=== PATIENT | male | born 1980 | race American Indian/Alaskan Native ===

== ENCOUNTER 2021-12-24 09:00 | Inpatient (IN) | payer OTHER ==
[2021-12-24 12:59] LABS: Hematocrit 35.7 % (35.5-45.6); Hemoglobin 11.9 gm/dl (11.8-15.2); Mean Corpuscular HGB Conc 33 % (32-34); Mean Corpuscular Volume 83 fl (84-94); Platelet Count 238 K/mm3 (140-440); Red Blood Count 4.33 M/mm3 (3.65-5.03); Red Cell Distribution Width 13.3 % (13.2-15.2)
[2021-12-24 13:20] LABS: Calcium 8.6 mg/dL (8.4-10.2)
--- NOTE | 2021-12-24 14:07 | XRay Report ---
XR chest routine 2V INDICATION / CLINICAL INFORMATION: Upper Respiratory Infection. COMPARISON: None available. FINDINGS: SUPPORT DEVICES: None. HEART /PULMONARY VASCULATURE: No significant abnormality. LUNGS / PLEURA: There is focal asymmetric airspace opacity left perihilar region and medial left lung base. Right lung is clear. No sizable pleural effusion. No pneumothorax. ADDITIONAL FINDINGS: No significant additional findings. IMPRESSION: Left perihilar and basilar airspace opacity, most consistent with pneumonia. Recommend continued radi ographic follow-up to resolution. Signer Name: Farrukh Schuster MD Signed: 12/24/2021 2:02 PM Workstation Name: [id number]
[2021-12-24 14:27] LABS: Band Neutrophils # (Manual) 1.2 K/mm3; Basophils % (Manual) 0 % (0.0-1.8); Eosinophils % (Manual) 0 % (0.0-4.3); Total Cells Counted 100
[2021-12-24 14:29] LABS: Anisocytosis 1+
[2021-12-24 14:30] LABS: Spherocytes 1+
[2021-12-24 14:31] LABS: Platelet Estimate Consistent w Auto
--- NOTE | 2021-12-24 16:17 | Cat Scan Report ---
CTA CHEST WITH CONTRAST INDICATION / CLINICAL INFORMATION: elevated ddimer, r/o pe 100ml of [id number] . TECHNIQUE: Axial CT images were obtained through the chest after injection of 100 cc of Omnipaque 350 IV contrast. 3 plane MIP and/or 3D reconstructions were produced. All CT scans at this location are performed using CT dose reduction for ALARA by means of automated exposure control. COMPARISON: None available. FINDINGS: PULMONARY ARTERIES: No pulmonary emboli. THORACIC AORTA: No significant abnormality. HEART: No significant abnormality. CORONARY ARTERY CALCIFICATION: None. MEDIASTINUM / JUAN: There are mildly prominent left paratracheal and left hilar lymph nodes. These ar e nonspecific. PLEURA: No pleural effusion. No pneumothorax. LUNGS: There is airspace consolidation in the medial aspect of the left lower lobe and there are patc hy airspace opacities in the right lower lobe and right upper lobe. ADDITIONAL FINDINGS: None. UPPER ABDOMEN: No acute findings. SKELETAL STRUCTURES: No significant osseous abnormality. IMPRESSION: 1. No CT evidence for pulmonary embolism. 2. Bilateral pulmonary opacities most prominent in the medial left lower lobe characteristic of pneum onia. 3. Mildly prominent mediastinal and left hilar nodes are likely reactive. Signer Name: Alfonzo Bueno MD Signed: 12/24/2021 4:13 PM Workstation Name: [email or web address]
[2021-12-24] MEDS ORDERED: SODIUM CHLORIDE 0.9% 1000 ML 1,000 ML IV ONE (16:39)
[2021-12-24] MEDS ORDERED: PROCHLORPERAZINE EDISYLATE 10 MG/2 ML VIAL IV ONE (17:00)
--- NOTE | 2021-12-24 17:33 | Emergency Department Report ---
- General Chief Complaint: Upper Respiratory Infection Stated Complaint: PNEUMONIA Time Seen by Provider: 12/24/21 16:36 Source: patient Mode of arrival: Ambulatory Limitations: No Limitations - History of Present Illness Initial Comments: Patient is a 41-year-old male sent from urgent care for evaluation of cough with generalized body aches, nausea and vomiting for the past week. He also reports shortness of breath. - Related Data Allergies Allergy/AdvReac Type Severity Reaction Status Date / Time No Known Allergies Allergy Verified 12/24/21 09:44 ED Review of Systems ROS: Stated complaint: PNEUMONIA Other details as noted in HPI Constitutional: chills, malaise Respiratory: shortness of breath Cardiovascular: denies: chest pain, palpitations Gastrointestinal: nausea, vomiting. denies: as per HPI, abdominal pain Genitourinary: denies: urgency, dysuria Musculoskeletal: myalgia Skin: denies: rash, lesions Neurological: denies: headache, weakness, paresthesias Psychiatric: denies: anxiety, depression ED Physical Exam - General Limitations: No Limitations General appearance: alert, in no apparent distress - Head Head exam: Present: atraumatic, normocephalic - Neck Neck exam: Present: normal inspection. Absent: tenderness - Respiratory Respiratory exam: Present: normal lung sounds bilaterally. Absent: respiratory distress - Cardiovascular Cardiovascular Exam: Present: normal rhythm, tachycardia, normal heart sounds - GI/Abdominal GI/Abdominal exam: Present: soft. Absent: distended, tenderness - Rectal Rectal exam: Present: deferred - Neurological Exam Neurological exam: Present: alert, oriented X3 - Psychiatric Psychiatric exam: Present: normal affect, normal mood - Skin Skin exam: Present: warm, dry, intact, normal color ED Course Vital Signs 12/24/21 09:41 Temperature 99.3 F Pulse Rate 126 H Respiratory 18 Rate Blood Pressure 121/99 [Right] O2 Sat by Pulse 96 Oximetry ED Medical Decision Making - Lab Data Result diagrams: 12/24/21 12:35 12/24/21 12:35 - Medical Decision Making WBC count 17,000. Chest x-ray and CTA chest show bilateral infiltrates consistent with pneumonia. Patient given IV Levaquin along with IV fluids. Will admit to [facility]. Critical care attestation.: If time is entered above; I have spent that time in minutes in the direct care of this critically ill patient, excluding procedure time. ED Disposition Clinical Impression: Community acquired pneumonia Disposition: 09 ADMITTED INPATIENT Is pt being admited?: Yes Does the pt Need Aspirin: No Condition: Stable Instructions: Bacterial Pneumonia (ED)
[2021-12-24] MEDS ORDERED: MORPHINE 2 MG/1 ML INJ IM ONE (17:49)
[2021-12-24] MEDS ORDERED: ONDANSETRON 4 MG/2 ML INJ IV PRN (21:32)
[2021-12-24] MEDS ORDERED: MORPHINE 2 MG/1 ML INJ IV PRN (21:32)
[2021-12-24] MEDS ORDERED: ACETAMINOPHEN 325 MG TAB PO PRN (21:32)
[2021-12-24] MEDS ORDERED: IPRATROPIUM/ALBUTEROL SULFATE 3 ML AMPUL.NEB IH PRN (21:34)
[2021-12-24] MEDS ORDERED: SODIUM CHLORIDE 0.9% 1000 ML 1,000 ML IV SCH (21:45)
[2021-12-25] MEDS: HEPARIN 5,000 UNIT/1 ML VIAL SUB-Q SCH ×3 (01:00→21:48)
[2021-12-25] MEDS: FAMOTIDINE 20 MG TAB PO SCH ×2 (01:00→10:05)
[2021-12-25 03:06] LABS: Hematocrit 31.1 % (35.5-45.6); Hemoglobin 10.4 gm/dl (11.8-15.2); Mean Corpuscular HGB Conc 33 % (32-34); Mean Corpuscular Volume 83 fl (84-94); Platelet Count 209 K/mm3 (140-440); Red Blood Count 3.77 M/mm3 (3.65-5.03); Red Cell Distribution Width 13.1 % (13.2-15.2)
[2021-12-25 03:29] LABS: Alanine Aminotransferase 22 units/L (7-56); BUN/Creatinine Ratio 24; Blood Urea Nitrogen 33 mg/dL (9-20); Calcium 7.8 mg/dL (8.4-10.2); Hemolysis Index 2
[2021-12-25 03:56] LABS: Basophils % (Manual) 0 % (0.0-1.8); Eosinophils % (Manual) 0 % (0.0-4.3); Total Cells Counted 100
[2021-12-25 03:57] LABS: Platelet Estimate Consistent w Auto
[2021-12-25] MEDS: cefTRIAXone/NS 2 GM/100 ML 2 GM/100 ML BAG IV SCH ×2 (04:29→09:59)
[2021-12-25] MEDS ORDERED: hydrALAZINE 20 MG/1 ML INJ IV PRN (05:18)
[2021-12-25] MEDS: AZITHROMYCIN/NS 500 MG/250 ML 500 MG/250 ML BAG IV SCH ×2 (05:48→21:48)
--- NOTE | 2021-12-25 06:34 | History and Physical Report ---
History of Present Illness Date of examination: 12/24/21 Date of admission: 12/24/21 21:32 Chief complaint: Fever cough and chills for 3 days History of present illness: 41-year-old male with no significant past medical history sent from urgent care for evaluation of cough associated with generalized body aches and nausea and vomiting for the past 1 week more so for the last 3 days. Also some shortness of breath. Cough productive of mucoid sputum. COVID vaccination status was not asked in the emergency room. No orthopnea and dyspnea on exertion. Past History Past Medical History: No medical history Past Surgical History: No surgical history Social history: lives with family, full code. denies: smoking, alcohol abuse Family history: hypertension Medications and Allergies Allergies Allergy/AdvReac Type Severity Reaction Status Date / Time No Known Allergies Allergy Verified 12/24/21 09:44 Active Meds: Active Medications Acetaminophen (Acetaminophen 325 Mg Tab) 650 mg PO Q4H PRN PRN Reason: Pain MILD(1-3)/Fever >100.5/DURANT Famotidine (Famotidine 20 Mg Tab) 20 mg PO QAM WILLIE Last Admin: 12/25/21 01:00 Dose: 20 mg Heparin Sodium (Porcine) (Heparin 5,000 Unit/1 Ml Vial) 5,000 unit SUB-Q Q12HR WILLIE Last Admin: 12/25/21 01:00 Dose: 5,000 unit Hydralazine HCl (Hydralazine 20 Mg/1 Ml Inj) 10 mg IV Q6H PRN PRN Reason: Hypertension Last Admin: 12/25/21 05:51 Dose: 10 mg Sodium Chloride (Nacl 0.9% 1000 Ml) 1,000 mls @ 75 mls/hr IV DIRECT WILLIE Last Admin: 12/25/21 01:00 Dose: 75 mls/hr Azithromycin (Zithromax/Ns) 500 mg in 250 mls @ 250 mls/hr IV Q24H [facility] Last Admin: 12/25/21 05:48 Dose: 250 mls/hr Ceftriaxone Sodium (Rocephin/Ns 2 Gm/100 Ml) 2 gm in 100 mls @ 200 mls/hr IV Q24HR [facility]; Protocol Last Admin: 12/25/21 04:29 Dose: 200 mls/hr Morphine Sulfate (Morphine 2 Mg/1 Ml Inj) 2 mg IV Q4H PRN PRN Reason: Pain, Moderate (4-6) Last Admin: 12/25/21 00:11 Dose: 2 mg Ondansetron HCl (Ondansetron 4 Mg/2 Ml Inj) 4 mg IV Q8H PRN PRN Reason: Nausea And Vomiting Oxycodone/Acetaminophen (Oxycodone /Acetaminophen 5-325mg Tab) 1 tab PO Q6H PRN PRN Reason: Pain, Moderate (4-6) Sodium Chloride (Sodium Chloride 0.9% 10 Ml Flush Syringe) 10 ml IV BID WILLIE Last Admin: 12/25/21 01:00 Dose: 10 ml Sodium Chloride (Sodium Chloride 0.9% 10 Ml Flush Syringe) 10 ml IV PRN PRN PRN Reason: LINE FLUSH Review of Systems All systems: negative Respiratory: cough with sputum, shortness of breath Musculoskeletal: myalgias Exam - Constitutional Vitals: Temp Pulse Resp BP Pulse Ox 98.4 F 107 H 18 161/112 97 12/25/21 04:33 12/25/21 05:51 12/25/21 04:33 12/25/21 05:51 12/25/21 04:33 General appearance: Present: no acute distress, well-nourished - EENT Eyes: Present: PERRL ENT: hearing intact, clear oral mucosa - Neck Neck: Present: supple, normal ROM - Respiratory Respiratory effort: normal Respiratory: bilateral: CTA, rhonchi, wheezing - Cardiovascular Heart rate: 88 Rhythm: regular Heart Sounds: Present: S1 & S2. Absent: rub, click - Extremities Extremities: no ischemia, pulses intact, pulses symmetrical, No edema Peripheral Pulses: within normal limits - Abdominal General gastrointestinal: Present: soft, non-tender, non-distended, normal bowel sounds Male genitourinary: Present: normal - Integumentary Integumentary: Present: clear, warm, dry - Musculoskeletal Musculoskeletal: gait normal, strength equal bilaterally - Psychiatric Psychiatric: appropriate mood/affect, intact judgment & insight - Neurologic Neurologic: CNII-XII intact, moves all extremities - Allied Health Allied health notes reviewed: nursing, case management Results - Labs CBC & Chem 7: 12/25/21 02:28 12/25/21 02:28 Labs: Laboratory Last Values WBC 15.9 K/mm3 (4.5-11.0) H 12/25/21 02:28 RBC 3.77 M/mm3 (3.65-5.03) 12/25/21 02:28 Hgb 10.4 gm/dl (11.8-15.2) L 12/25/21 02:28 Hct 31.1 % (35.5-45.6) L 12/25/21 02:28 MCV 83 fl (84-94) L 12/25/21 02:28 MCH 28 pg (28-32) 12/25/21 02:28 MCHC 33 % (32-34) 12/25/21 02:28 RDW 13.1 % (13.2-15.2) L 12/25/21 02:28 Plt Count 209 K/mm3 (140-440) 12/25/21 02:28 Add Manual Diff Complete 12/25/21 02:28 Total Counted 100 12/25/21 02:28 Seg Neuts % (Manual) 81.0 % (40.0-70.0) H 12/25/21 02:28 Band Neutrophils % 0 % 12/25/21 02:28 Lymphocytes % (Manual) 14.0 % (13.4-35.0) 12/25/21 02:28 Reactive Lymphs % (Man) 0 % 12/25/21 02:28 Monocytes % (Manual) 5.0 % (0.0-7.3) 12/25/21 02:28 Eosinophils % (Manual) 0 % (0.0-4.3) 12/25/21 02:28 Basophils % (Manual) 0 % (0.0-1.8) 12/25/21 02:28 Metamyelocytes % 0 % 12/25/21 02:28 Myelocytes % 0 % 12/25/21 02:28 Promyelocytes % 0 % 12/25/21 02:28 Blast Cells % 0 % 12/25/21 02:28 Nucleated RBC % Not Reportable 12/25/21 02:28 Seg Neutrophils # Man 12.9 K/mm3 (1.8-7.7) H 12/25/21 02:28 Band Neutrophils # 0.0 K/mm3 12/25/21 02:28 Lymphocytes # (Manual) 2.2 K/mm3 (1.2-5.4) 12/25/21 02:28 Abs React Lymphs (Man) 0.0 K/mm3 12/25/21 02:28 Monocytes # (Manual) 0.8 K/mm3 (0.0-0.8) 12/25/21 02:28 Eosinophils # (Manual) 0.0 K/mm3 (0.0-0.4) 12/25/21 02:28 Basophils # (Manual) 0.0 K/mm3 (0.0-0.1) 12/25/21 02:28 Metamyelocytes # 0.0 K/mm3 12/25/21 02:28 Myelocytes # 0.0 K/mm3 12/25/21 02:28 Promyelocytes # 0.0 K/mm3 12/25/21 02:28 Blast Cells # 0.0 K/mm3 12/25/21 02:28 WBC Morphology Not Reportable 12/25/21 02:28 Hypersegmented Neuts Not Reportable 12/25/21 02:28 Hyposegmented Neuts Not Reportable 12/25/21 02:28 Hypogranular Neuts Not Reportable 12/25/21 02:28 Smudge Cells Not Reportable 12/25/21 02:28 Toxic Granulation Not Reportable 12/25/21 02:28 Toxic Vacuolation Not Reportable 12/25/21 02:28 Dohle Bodies Not Reportable 12/25/21 02:28 Pelger-Huet Anomaly Not Reportable 12/25/21 02:28 Anna Rods Not Reportable 12/25/21 02:28 Platelet Estimate Consistent w auto 12/25/21 02:28 Clumped Platelets Not Reportable 12/25/21 02:28 Plt Clumps, EDTA Not Reportable 12/25/21 02:28 Large Platelets Not Reportable 12/25/21 02:28 Giant Platelets Not Reportable 12/25/21 02:28 Platelet Satelliting Not Reportable 12/25/21 02:28 Plt Morphology Comment Not Reportable 12/25/21 02:28 RBC Morphology Not Reportable 12/25/21 02:28 Dimorphic RBCs Not Reportable 12/25/21 02:28 Polychromasia Not Reportable 12/25/21 02:28 Hypochromasia Not Reportable 12/25/21 02:28 Poikilocytosis Not Reportable 12/25/21 02:28 Anisocytosis Not Reportable 12/25/21 02:28 Microcytosis Not Reportable 12/25/21 02:28 Macrocytosis Not Reportable 12/25/21 02:28 Spherocytes Not Reportable 12/25/21 02:28 Pappenheimer Bodies Not Reportable 12/25/21 02:28 Sickle Cells Not Reportable 12/25/21 02:28 Target Cells Not Reportable 12/25/21 02:28 Tear Drop Cells Not Reportable 12/25/21 02:28 Ovalocytes Not Reportable 12/25/21 02:28 Helmet Cells Not Reportable 12/25/21 02:28 [place] Bodies Not Reportable 12/25/21 02:28 [place] Rings Not Reportable 12/25/21 02:28 Outing Cells Not Reportable 12/25/21 02:28 Bite Cells Not Reportable 12/25/21 02:28 Crenated Cell Not Reportable 12/25/21 02:28 Elliptocytes Not Reportable 12/25/21 02:28 Acanthocytes (Spur) Not Reportable 12/25/21 02:28 Rouleaux Not Reportable 12/25/21 02:28 Hemoglobin C Crystals Not Reportable 12/25/21 02:28 Schistocytes Not Reportable 12/25/21 02:28 Malaria parasites Not Reportable 12/25/21 02:28 Teja Bodies Not Reportable 12/25/21 02:28 Hem Pathologist Commnt No 12/25/21 02:28 D-Dimer 855.97 ng/mlDDU (0-234) H 12/24/21 12:35 Sodium 128 mmol/L (137-145) L 12/25/21 02:28 Potassium 4.0 mmol/L (3.6-5.0) 12/25/21 02:28 Chloride 95.5 mmol/L (98-107) L 12/25/21 02:28 Carbon Dioxide 24 mmol/L (22-30) 12/25/21 02:28 Anion Gap 13 mmol/L 12/25/21 02:28 BUN 33 mg/dL (9-20) H 12/25/21 02:28 Creatinine 1.4 mg/dL (0.8-1.3) H 12/25/21 02:28 Estimated GFR > 60 ml/min 12/25/21 02:28 BUN/Creatinine Ratio 24 % 12/25/21 02:28 Glucose 106 mg/dL (75-100) H 12/25/21 02:28 Calcium 7.8 mg/dL (8.4-10.2) L 12/25/21 02:28 Total Bilirubin 0.50 mg/dL (0.1-1.2) 12/25/21 02:28 AST 46 units/L (5-40) H 12/25/21 02:28 ALT 22 units/L (7-56) 12/25/21 02:28 Alkaline Phosphatase 80 units/L (35-129) 12/25/21 02:28 Total Protein 7.4 g/dL (6.3-8.2) 12/25/21 02:28 Albumin 3.0 g/dL (3.9-5) L 12/25/21 02:28 Albumin/Globulin Ratio 0.7 % 12/25/21 02:28 Microbiology: Microbiology 12/25/21 02:36 Peripheral/Venous Blood Culture - Preliminary Culture in Progress 12/25/21 02:28 Peripheral/Venous Blood Culture - Preliminary Culture in Progress - Imaging and Cardiology Imaging and Cardiology: Chest x-ray Left perihilar and basilar airspace opacity most consistent with pneumonia CT angiogram of the chest Neck no evidence for pulmonary embolism. Bilateral pulmonary opacities most prominent in the medial left lower lobe characteristic pneumonia. Mildly prominent mediastinal and left hilar nodes likely reactive. Assessment and Plan Advance Directives: Yes (Full code) VTE prophylaxis?: Chemical Plan of care discussed with patient/family: Yes - Patient Problems (1) SIRS (systemic inflammatory response syndrome) Current Visit: Yes Status: Acute Plan to address problem: Patient is a high white count and elevated D-dimers Consistent with systemic inflammatory response syndrome Patient initiated on IV Zithromax and IV Rocephin PUI for COVID (2) Acute respiratory failure with hypoxia Current Visit: Yes Status: Acute Plan to address problem: Patient was initially hypoxic initially and improved with nasal cannula oxygen (3) Bilateral pneumonia Current Visit: Yes Status: Acute Plan to address problem: Consistent with community-acquired pneumonia Rule out COVID pneumonia IV Zithromax and IV Rocephin for now. Reevaluated. (4) Hyponatremia Current Visit: Yes Status: Acute Plan to address problem: IV normal saline for now (5) NATALY (acute kidney injury) Current Visit: Yes Status: Acute Plan to address problem: Vasomotor nephropathy IV fluids for now Creatinine was 1.6 Recheck BMP (6) DVT prophylaxis Current Visit: Yes Status: Acute Plan to address problem: On heparin and GI prophylaxis (7) Advance care planning Current Visit: Yes Status: Acute Plan to address problem: Disease education conducted, care plan discussed, diagnosis and prognosis discussed. Patient is full code. Patient acknowledged understanding of care plan. +30 minutes.
--- NOTE | 2021-12-25 06:46 | Event Note ---
Date: 12/24/21 Patient blood pressure has been higher Patient initiated on valsartan 160 mg once a day
[2021-12-25] MEDS: NIFEdipine XL 60 MG TAB PO SCH (10:05)
[2021-12-25] MEDS: VALSARTAN 160MG TAB PO SCH (10:05)
[2021-12-25] MEDS: oxyCODONE /ACETAMINOPHEN 5-325MG TAB PO PRN (11:58)
--- NOTE | 2021-12-25 14:15 | Progress Note ---
Assessment and Plan Assessment and plan: #Bilateral pneumonia secondary to possible gram-negative bacteria versus atypical bacteria #Acute hypoxic respiratory failureresolved #SIRS WBC 17.6--> 15.9 Chest x-ray revealing consolidation of left lower lobe. Unremarkable coronavirus PCR. Pending influenza A/B PCR. Continue azithromycin 500 mg every 24 hours and Rocephin 1 g every 24 hours. Patient denies possible aspiration and denies alcohol history. #NATALY secondary to vasomotor nephropathyimproving Creatinine 1.6--> 1.4 Secondary to decreased p.o. intake (tea and toast diet) in the setting of nausea and vomiting Renally dose meds and avoid nephrotoxic drugs. Monitor with BMP tomorrow morning. #Hyponatremiaimproving Sodium 127--> 128 Secondary to decreased p.o. intake (tea and toast diet) in the setting of nausea and vomiting Continue to encourage patient to increase p.o. intake + continue normal saline infusion at 75 cc an hour Monitor with BMP tomorrow morning #Microcytic anemia Hemoglobin 10.4 Patient denies hemoptysis, hematemesis, melena, hematuria, or genetic hemoglobinopathies. Pending iron profile + ferritin. Given patient's age and race, patient should follow with gastroenterology in the outpatient setting to likely undergo colonoscopy to evaluate for possible malignancy. Patient expresses understanding. [facility] #Mild protein caloric malnutrition Albumin 3.0 Starting dietary supplementation #Advanced care planning -Disease education conducted, care plan discussed, diagnoses discussed, prognosis discussed, and patient acknowledges understanding with care plan -Time: +30 min Disposition Plan: Continue medical management Total Time Spent with Patient (Minutes): 45 minutes History Interval history: No acute events overnight. Hospitalist Physical - Constitutional Vitals: Temp Pulse Resp BP Pulse Ox 98.6 F 103 H 20 137/100 98 12/25/21 11:28 12/25/21 11:28 12/25/21 11:28 12/25/21 11:28 12/25/21 11:28 General appearance: Present: no acute distress, well-nourished - EENT Eyes: Present: PERRL, EOM intact ENT: hearing intact, clear oral mucosa, dentition normal - Neck Neck: Present: supple, normal ROM - Respiratory Respiratory effort: normal Respiratory: bilateral: CTA - Cardiovascular Rhythm: regular Heart Sounds: Present: S1 & S2 - Extremities Extremities: no ischemia, pulses intact, pulses symmetrical, No edema, normal temperature, normal color, Full ROM Peripheral Pulses: within normal limits - Abdominal General gastrointestinal: soft, non-tender, non-distended, normal bowel sounds - Integumentary Integumentary: Present: clear, warm, dry - Psychiatric Psychiatric: appropriate mood/affect, intact judgment & insight, memory intact, cooperative - Neurologic Neurologic: CNII-XII intact, moves all extremities - Allied Health Allied health notes reviewed: nursing Results - Labs CBC & Chem 7: 12/25/21 02:28 12/25/21 02:28 Labs: Laboratory Last Values WBC 15.9 K/mm3 (4.5-11.0) H 12/25/21 02:28 RBC 3.77 M/mm3 (3.65-5.03) 12/25/21 02:28 Hgb 10.4 gm/dl (11.8-15.2) L 12/25/21 02:28 Hct 31.1 % (35.5-45.6) L 12/25/21 02:28 MCV 83 fl (84-94) L 12/25/21 02:28 MCH 28 pg (28-32) 12/25/21 02:28 MCHC 33 % (32-34) 12/25/21 02:28 RDW 13.1 % (13.2-15.2) L 12/25/21 02:28 Plt Count 209 K/mm3 (140-440) 12/25/21 02:28 Add Manual Diff Complete 12/25/21 02:28 Total Counted 100 12/25/21 02:28 Seg Neuts % (Manual) 81.0 % (40.0-70.0) H 12/25/21 02:28 Band Neutrophils % 0 % 12/25/21 02:28 Lymphocytes % (Manual) 14.0 % (13.4-35.0) 12/25/21 02:28 Reactive Lymphs % (Man) 0 % 12/25/21 02:28 Monocytes % (Manual) 5.0 % (0.0-7.3) 12/25/21 02:28 Eosinophils % (Manual) 0 % (0.0-4.3) 12/25/21 02:28 Basophils % (Manual) 0 % (0.0-1.8) 12/25/21 02:28 Metamyelocytes % 0 % 12/25/21 02:28 Myelocytes % 0 % 12/25/21 02:28 Promyelocytes % 0 % 12/25/21 02:28 Blast Cells % 0 % 12/25/21 02:28 Nucleated RBC % Not Reportable 12/25/21 02:28 Seg Neutrophils # Man 12.9 K/mm3 (1.8-7.7) H 12/25/21 02:28 Band Neutrophils # 0.0 K/mm3 12/25/21 02:28 Lymphocytes # (Manual) 2.2 K/mm3 (1.2-5.4) 12/25/21 02:28 Abs React Lymphs (Man) 0.0 K/mm3 12/25/21 02:28 Monocytes # (Manual) 0.8 K/mm3 (0.0-0.8) 12/25/21 02:28 Eosinophils # (Manual) 0.0 K/mm3 (0.0-0.4) 12/25/21 02:28 Basophils # (Manual) 0.0 K/mm3 (0.0-0.1) 12/25/21 02:28 Metamyelocytes # 0.0 K/mm3 12/25/21 02:28 Myelocytes # 0.0 K/mm3 12/25/21 02:28 Promyelocytes # 0.0 K/mm3 12/25/21 02:28 Blast Cells # 0.0 K/mm3 12/25/21 02:28 WBC Morphology Not Reportable 12/25/21 02:28 Hypersegmented Neuts Not Reportable 12/25/21 02:28 Hyposegmented Neuts Not Reportable 12/25/21 02:28 Hypogranular Neuts Not Reportable 12/25/21 02:28 Smudge Cells Not Reportable 12/25/21 02:28 Toxic Granulation Not Reportable 12/25/21 02:28 Toxic Vacuolation Not Reportable 12/25/21 02:28 Dohle Bodies Not Reportable 12/25/21 02:28 Pelger-Huet Anomaly Not Reportable 12/25/21 02:28 Anna Rods Not Reportable 12/25/21 02:28 Platelet Estimate Consistent w auto 12/25/21 02:28 Clumped Platelets Not Reportable 12/25/21 02:28 Plt Clumps, EDTA Not Reportable 12/25/21 02:28 Large Platelets Not Reportable 12/25/21 02:28 Giant Platelets Not Reportable 12/25/21 02:28 Platelet Satelliting Not Reportable 12/25/21 02:28 Plt Morphology Comment Not Reportable 12/25/21 02:28 RBC Morphology Not Reportable 12/25/21 02:28 Dimorphic RBCs Not Reportable 12/25/21 02:28 Polychromasia Not Reportable 12/25/21 02:28 Hypochromasia Not Reportable 12/25/21 02:28 Poikilocytosis Not Reportable 12/25/21 02:28 Anisocytosis Not Reportable 12/25/21 02:28 Microcytosis Not Reportable 12/25/21 02:28 Macrocytosis Not Reportable 12/25/21 02:28 Spherocytes Not Reportable 12/25/21 02:28 Pappenheimer Bodies Not Reportable 12/25/21 02:28 Sickle Cells Not Reportable 12/25/21 02:28 Target Cells Not Reportable 12/25/21 02:28 Tear Drop Cells Not Reportable 12/25/21 02:28 Ovalocytes Not Reportable 12/25/21 02:28 Helmet Cells Not Reportable 12/25/21 02:28 Barnhart-Ascutney Bodies Not Reportable 12/25/21 02:28 [place] Rings Not Reportable 12/25/21 02:28 De Borgia Cells Not Reportable 12/25/21 02:28 Bite Cells Not Reportable 12/25/21 02:28 Crenated Cell Not Reportable 12/25/21 02:28 Elliptocytes Not Reportable 12/25/21 02:28 Acanthocytes (Spur) Not Reportable 12/25/21 02:28 Rouleaux Not Reportable 12/25/21 02:28 Hemoglobin C Crystals Not Reportable 12/25/21 02:28 Schistocytes Not Reportable 12/25/21 02:28 Malaria parasites Not Reportable 12/25/21 02:28 Teja Bodies Not Reportable 12/25/21 02:28 Hem Pathologist Commnt No 12/25/21 02:28 D-Dimer 855.97 ng/mlDDU (0-234) H 12/24/21 12:35 Sodium 128 mmol/L (137-145) L 12/25/21 02:28 Potassium 4.0 mmol/L (3.6-5.0) 12/25/21 02:28 Chloride 95.5 mmol/L (98-107) L 12/25/21 02:28 Carbon Dioxide 24 mmol/L (22-30) 12/25/21 02:28 Anion Gap 13 mmol/L 12/25/21 02:28 BUN 33 mg/dL (9-20) H 12/25/21 02:28 Creatinine 1.4 mg/dL (0.8-1.3) H 12/25/21 02:28 Estimated GFR > 60 ml/min 12/25/21 02:28 BUN/Creatinine Ratio 24 % 12/25/21 02:28 Glucose 106 mg/dL (75-100) H 12/25/21 02:28 Calcium 7.8 mg/dL (8.4-10.2) L 12/25/21 02:28 Total Bilirubin 0.50 mg/dL (0.1-1.2) 12/25/21 02:28 AST 46 units/L (5-40) H 12/25/21 02:28 ALT 22 units/L (7-56) 12/25/21 02:28 Alkaline Phosphatase 80 units/L (35-129) 12/25/21 02:28 Total Protein 7.4 g/dL (6.3-8.2) 12/25/21 02:28 Albumin 3.0 g/dL (3.9-5) L 12/25/21 02:28 Albumin/Globulin Ratio 0.7 % 12/25/21 02:28 Coronavirus (PCR) Negative (Negative) 12/25/21 08:45 Microbiology: Microbiology 12/25/21 02:36 Peripheral/Venous Blood Culture - Preliminary Culture in Progress 12/25/21 02:28 Peripheral/Venous Blood Culture - Preliminary Culture in Progress Azul/IV: Voiding Method Toilet Active Medications - Current Medications Current Medications: Generic Name Dose Route Start Last Admin Trade Name Freq PRN Reason Stop Dose Admin Acetaminophen 650 mg 12/24/21 21:32 Acetaminophen 325 Mg Tab PO Q4H PRN Pain MILD(1-3)/Fever >100.5/DURANT Famotidine 20 mg 12/24/21 22:00 12/25/21 10:05 Famotidine 20 Mg Tab PO 20 mg QAM WILLIE Administration Heparin Sodium (Porcine) 5,000 unit 12/24/21 22:00 12/25/21 10:05 Heparin 5,000 Unit/1 Ml Vial SUB-Q 5,000 unit Q12HR WILLIE Administration Hydralazine HCl 10 mg 12/25/21 05:18 12/25/21 05:51 Hydralazine 20 Mg/1 Ml Inj IV 10 mg Q6H PRN Administration Hypertension Azithromycin 500 mg in 250 mls @ 250 mls/hr 12/24/21 22:00 12/25/21 05:48 Zithromax/Ns IV 250 mls/hr Q24H WILLIE Administration Ceftriaxone Sodium 2 gm in 100 mls @ 200 mls/hr 12/26/21 06:00 Rocephin/Ns 2 Gm/100 Ml IV Q24H [facility] Protocol Morphine Sulfate 2 mg 12/24/21 21:32 12/25/21 00:11 Morphine 2 Mg/1 Ml Inj IV 2 mg Q4H PRN Administration Pain, Moderate (4-6) Nifedipine 60 mg 12/25/21 10:00 12/25/21 10:05 Nifedipine Xl 60 Mg Tab PO 60 mg QDAY WILLIE Administration Ondansetron HCl 4 mg 12/24/21 21:32 Ondansetron 4 Mg/2 Ml Inj IV Q8H PRN Nausea And Vomiting Oxycodone/Acetaminophen 1 tab 12/24/21 21:32 12/25/21 11:58 Oxycodone /Acetaminophen 5-325mg Tab PO 1 tab Q6H PRN Administration Pain, Moderate (4-6) Sodium Chloride 10 ml 12/24/21 22:00 12/25/21 10:06 Sodium Chloride 0.9% 10 Ml Flush Syringe IV 10 ml BID WILLIE Administration Sodium Chloride 10 ml 12/24/21 21:32 Sodium Chloride 0.9% 10 Ml Flush Syringe IV PRN PRN LINE FLUSH Valsartan 160 mg 12/25/21 10:00 12/25/21 10:05 Valsartan 160mg Tab PO 160 mg DAILY WILLIE Administration
[2021-12-25] MEDS: carvediloL 12.5 MG TAB PO SCH ×2 (17:39→21:50)
[2021-12-25] MEDS ORDERED: guaiFENesin DM 200/20 MG ORAL LIQD 10 ML PO PRN (21:47)
[2021-12-26] MEDS: oxyCODONE /ACETAMINOPHEN 5-325MG TAB PO PRN (01:30)
[2021-12-26 05:41] LABS: Hematocrit 33.7 % (35.5-45.6); Hemoglobin 11.3 gm/dl (11.8-15.2); Mean Corpuscular HGB Conc 34 % (32-34); Mean Corpuscular Volume 83 fl (84-94); Platelet Count 286 K/mm3 (140-440); Red Blood Count 4.05 M/mm3 (3.65-5.03); Red Cell Distribution Width 13.4 % (13.2-15.2)
[2021-12-26] MEDS ORDERED: cefTRIAXone/NS 2 GM/100 ML 2 GM/100 ML BAG IV SCH (06:00)
[2021-12-26 06:03] LABS: BUN/Creatinine Ratio 24; Blood Urea Nitrogen 26 mg/dL (9-20); Calcium 8.2 mg/dL (8.4-10.2); Hemolysis Index 2; Iron 53 ug/dL (49-181); Total Iron Binding Capacity 218 mcg/dL (250-450)
[2021-12-26 06:35] LABS: Band Neutrophils # (Manual) 0.1 K/mm3; Basophils % (Manual) 0 % (0.0-1.8); Platelet Estimate Consistent w Auto; Total Cells Counted 100
[2021-12-26] MEDS ORDERED: CALCIUM GLUCONATE 1,000 MG in SODIUM CHLORIDE 0.9% 100 ML IV ONE (07:37)
[2021-12-26] MEDS ORDERED: AMOXICILLIN 500 MG CAP PO SCH (07:39)
[2021-12-26] MEDS ORDERED: CALC GLUCONATE 1GM/NS 100 ML 1 GM/100 ML BAG IV ONE (09:00)
[2021-12-26] MEDS ORDERED: AZITHROMYCIN 250 MG TAB PO SCH (10:00)
[2021-12-26] MEDS ORDERED: guaiFENesin ER 600 MG TAB PO SCH (10:00)
--- NOTE | 2021-12-26 11:01 | Discharge Summary ---
Providers - Providers Date of Admission: 12/24/21 21:32 Date of discharge: 12/26/21 Attending physician: REGIS FALCON MD Primary care physician: [employer] Hospitalization Reason for admission: Pneumonia 2/2 GNR or atypical bacteria, NATALY, hyponatremia Condition: Stable Pertinent studies: Reviewed. Procedures: None. Hospital course: Patient is a 41-year-old male with past medical history of uncontrolled hypertension presented to the ED with myalgias, nausea, and vomiting as well as decreased p.o. intake for the previous week. Patient also endorsed having shortness of breath. The patient states not being vaccinated for COVID-19. Patient was found to be hemodynamically stable on presentation to the ED with the exception of tachycardia of 126. Patient's labs were remarkable for sodium 127, creatinine 1.6, WBC 17.6. Patient underwent chest x-ray revealing left lower lobe consolidation significant with pneumonia. Patient also underwent CT angio chest that was unremarkable for pulmonary embolism. Patient was started on IV fluids and antibiotics. Patient was found to be unremarkable for influenza A/B and coronavirus. Patient's acute kidney injury secondary to vasomotor nephropathy has since resolved as well as leukocytosis. Patient has been counseled about following up with a primary care provider, completing his antibiotic course, and following up with his PCP regarding his microcytic anemia (iron levels within normal limits). Patient expressed understanding. Patient is medically clear for discharge. Disposition: 01 HOME / SELF CARE / HOMELESS Final Discharge Diagnosis (Prints w/discharge instructions): Pneumonia secondary to possible gram-negative bacteria versus atypical bacteria, acute hypoxic respiratory failure, SIRS, NATALY secondary to vasomotor nephropathy, hyponatremia, microcytic anemia, mild protein caloric malnutrition, hypertension Time spent for discharge: 45 min Core Measure Documentation - Palliative Care Palliative Care/ Comfort Measures: Not Applicable - Core Measures Any of the following diagnoses?: none Exam - Constitutional Vitals: Temp Pulse Resp BP Pulse Ox 98.0 F 80 20 133/87 97 12/26/21 05:13 12/26/21 05:13 12/26/21 05:13 12/26/21 05:13 12/26/21 05:13 General appearance: Present: no acute distress, well-nourished - EENT Eyes: Present: PERRL, EOM intact ENT: hearing intact, clear oral mucosa, dentition normal - Neck Neck: Present: supple, normal ROM - Respiratory Respiratory effort: normal Respiratory: bilateral: diminished - Cardiovascular Rhythm: regular Heart Sounds: Present: S1 & S2 - Extremities Extremities: no ischemia, pulses intact, pulses symmetrical, No edema, normal temperature, normal color, Full ROM Peripheral Pulses: within normal limits - Abdominal General gastrointestinal: Present: soft, non-tender, non-distended, normal bowel sounds Male genitourinary: Present: deferred - Rectal Rectal Exam: deferred - Integumentary Integumentary: Present: clear, warm, dry - Musculoskeletal Musculoskeletal: strength equal bilaterally - Psychiatric Psychiatric: appropriate mood/affect, intact judgment & insight, memory intact, cooperative - Neurologic Neurologic: CNII-XII intact, moves all extremities - Allied Health Allied health notes reviewed: nursing Plan Activity: no restrictions Diet: regular Additional Instructions: Patient is a 41-year-old male with past medical history of uncontrolled hypertension presented to the ED with myalgias, nausea, and vomiting as well as decreased p.o. intake for the previous week. Patient also endorsed having shortness of breath. The patient states not being vaccinated for COVID-19. Patient was found to be hemodynamically stable on presentation to the ED with the exception of tachycardia of 126. Patient's labs were remarkable for sodium 127, creatinine 1.6, WBC 17.6. Patient underwent chest x-ray revealing left lower lobe consolidation significant with pneumonia. Patient also underwent CT angio chest that was unremarkable for pulmonary embolism. Patient was started on IV fluids and antibiotics. Patient was found to be unremarkable for influenza A/B and coronavirus. Patient's acute kidney injury secondary to vasomotor nephropathy has since resolved as well as leukocytosis. Patient has been counseled about following up with a primary care provider, completing his antibiotic course, and following up with his PCP regarding his microcytic anemia (iron levels within normal limits). Patient expressed understanding. Patient is medically clear for discharge. Care Plan Goals: Patient is medically clear for discharge. Assessment: Patient is a 41-year-old male with past medical history of uncontrolled hypertension presented to the ED with myalgias, nausea, and vomiting as well as decreased p.o. intake for the previous week. Patient also endorsed having shortness of breath. The patient states not being vaccinated for COVID-19. Patient was found to be hemodynamically stable on presentation to the ED with the exception of tachycardia of 126. Patient's labs were remarkable for sodium 127, creatinine 1.6, WBC 17.6. Patient underwent chest x-ray revealing left lower lobe consolidation significant with pneumonia. Patient also underwent CT angio chest that was unremarkable for pulmonary embolism. Patient was started on IV fluids and antibiotics. Patient was found to be unremarkable for influenza A/B and coronavirus. Patient's acute kidney injury secondary to vasomotor nephropathy has since resolved as well as leukocytosis. Patient has been counseled about following up with a primary care provider, completing his antibiotic course, and following up with his PCP regarding his microcytic anemia (iron levels within normal limits). Patient expressed understanding. Patient is medically clear for discharge. Follow up with: PRIMARY MD RAKESH [Primary Care Provider] - 7 Days SHILPI MORRIS MD [Staff Physician] - 10 Days Prescriptions: carvediloL [Coreg] 12.5 mg PO BID #60 tablet Valsartan [Diovan] 160 mg PO DAILY #30 tablet guaiFENesin ER [Mucinex ER] 600 mg PO BID PRN #30 tablet PRN Reason: Cough oxyCODONE /ACETAMINOPHEN [Percocet 5/325 mg] 1 tab PO Q6H PRN #16 tablet PRN Reason: Pain, Moderate (4-6) NIFEdipine XL [Procardia Xl] 60 mg PO QDAY #30 tablet Amoxicillin [Trimox CAP] 500 mg PO Q8HR #15 capsule Azithromycin [Zithromax TAB] 500 mg PO QDAY #2 tablet
[2021-12-26 11:03] VITALS: BP 139/85
[2021-12-26] MEDS: VALSARTAN 160MG TAB PO SCH (11:03)
[2021-12-26] MEDS: NIFEdipine XL 60 MG TAB PO SCH (11:03)
[2021-12-26] MEDS: carvediloL 12.5 MG TAB PO SCH (11:03)
[2021-12-26] MEDS: FAMOTIDINE 20 MG TAB PO SCH (11:03)
[2021-12-26] MEDS: HEPARIN 5,000 UNIT/1 ML VIAL SUB-Q SCH (11:04)
== END 2021-12-26 11:30 | disposition home or self-care (01) | DRG 177 ==
LOC: ED 09:00 → 3A 21:32
PROVIDERS: ADMIT Internal Medicine; ATTEND Student in an Organized Health Care Education/Training Program
DX: J15.6 Pneumonia due to other Gram-negative bacteria (principal); J96.01 Acute respiratory failure with hypoxia; N17.0 Acute kidney failure with tubular necrosis; E87.1 Hypo-osmolality and hyponatremia; E44.1 Mild protein-calorie malnutrition; R65.10 Systemic inflammatory response syndrome (SIRS) of non-infectious origin without acute organ dysfunction; Z20.822 Contact with and (suspected) exposure to COVID-19; D50.9 Iron deficiency anemia, unspecified; Z68.21 Body mass index [BMI] 21.0-21.9, adult; Z82.49 Family history of ischemic heart disease and other diseases of the circulatory system
CPT/HCPCS: 36415; 71046; 71275; 80048; 80053; 82728; 83550; 85007; 85025; 85379; 87040; 96374; 99285; 99406; G0378; 87502; J0360; J0456; J0610; J0696; J1644; J1956; J2270; J7030; Q9967; U0003